=== PATIENT | female | born 1945 | race Caucasian/White ===

== ENCOUNTER → 2016-10-30 | Outpatient (CLI) | payer OTHER | LOC: MMPC 10:00 | PROVIDERS: ATTEND Orthopaedic Surgery | DX: G56.01 Carpal tunnel syndrome, right upper limb (principal) | CPT/HCPCS: 99214; G0463 ==

== ENCOUNTER → 2016-11-13 | Outpatient (CLI) | payer OTHER | LOC: MMPC 10:00 | PROVIDERS: ATTEND Orthopaedic Surgery | DX: G56.01 Carpal tunnel syndrome, right upper limb (principal) | CPT/HCPCS: 99213; G0463 ==

== ENCOUNTER → 2016-11-29 | Outpatient (CLI) | payer OTHER ==
--- NOTE | 2016-11-29 15:06 | DI ---
XR HIP COMPLETE MIN 2VW U/L,11/29/2016 9:47 AM: Clinical History: Soft tissue mass of the left hip Previous Exam: None at this facility. Findings: 3 views of the left hip are obtained, and demonstrate anatomic alignment without fractures. Joint spa carlitos are preserved. Degenerative changes of lumbar spine are seen. There are multiple surgical clips s een within the deep pelvis. Impression: Degenerative changes of lumbar spine otherwise unremarkable.
== END ==
LOC: LAB 09:43
PROVIDERS: ATTEND Obstetrics & Gynecology Gynecology
DX: R22.42 Localized swelling, mass and lump, left lower limb (principal)
CPT/HCPCS: 73502

== ENCOUNTER 2016-12-19 11:54 | Day surgery (SDC) | payer OTHER ==
[~2016-12-19 11:54] MED LIST: LIDOCAINE W/ SODIUM BICARB 0.5 ML SYR ONE; Lactated Ringers 1,000 ML PRIMARY IV ONE; ceFAZolin Inj 2gm (Premix) 50 ML IV ONE
[2016-12-19] MEDS ORDERED: fentaNYL Inj 100 MCG/2 ML VIAL ONE (13:47)
[2016-12-19] MEDS ORDERED: LIDOCAINE 2%/ EPI 1:200,000 - 20 ML VIAL ONE (13:47)
[2016-12-19] MEDS ORDERED: MIDAZOLAM 5 MG/1 ML ONE (13:47)
[2016-12-19] MEDS ORDERED: MEPIVACAINE HCL/PF 20 MG/1 ML IV ONE (13:47)
[2016-12-19 14:56] VITALS: RESP 12
[2016-12-19] MEDS ORDERED: MORPHINE SULFATE 2 MG/1 ML IVP PRN (15:02)
[2016-12-19] MEDS ORDERED: BISACODYL 5 MG TABLET PO PRN (15:02)
[2016-12-19] MEDS ORDERED: ONDANSETRON 4 MG/2 ML VIAL IVP PRN (15:02)
[2016-12-19] MEDS ORDERED: BISACODYL 10 MG SUPPOSITORY RECTAL PRN (15:02)
[2016-12-19] MEDS ORDERED: MAG HYDROX/AL HYDROX/SIMETH 30 ML SUSP PO PRN (15:02)
[2016-12-19] MEDS ORDERED: CALCIUM CARBONATE 500 MG (TUMS) CHEWABLE TABLET PO PRN (15:02)
[2016-12-19] MEDS ORDERED: IBUPROFEN 400 MG TABLET PO PRN (15:02)
[2016-12-19] MEDS ORDERED: HYDROcodone-APAP 5 MG -325 MG TABLET PO PRN (15:02)
[2016-12-19] MEDS ORDERED: diphenhydrAMINE 25 MG CAPSULE PO PRN (15:02)
[2016-12-19] MEDS ORDERED: Prochlorperazine Tab 10 MG TAB PO PRN (15:02)
[2016-12-19] MEDS ORDERED: NORMAL SALINE 10 ML SYRINGE FLUSH IVP PRN (15:02)
[2016-12-19] MEDS ORDERED: Ondansetron ODT Tab 8 MG TAB PO PRN (15:02)
[2016-12-19] MEDS ORDERED: ACETAMINOPHEN 325 MG TABLET PO PRN (15:02)
[2016-12-19] MEDS ORDERED: Lactated Ringers 1,000 ML PRIMARY IV SCH (15:15)
[2016-12-19 15:51] VITALS: TEMP 98.3
== END 2016-12-19 15:45 | disposition home or self-care (01) ==
LOC: SDSC 11:54
PROVIDERS: ATTEND Orthopaedic Surgery
DX: G56.01 Carpal tunnel syndrome, right upper limb (principal)
CPT/HCPCS: 64721; J0690; J3010; J0670; J2250; J7120

== ENCOUNTER → 2016-12-27 | Outpatient (CLI) | payer OTHER ==
--- NOTE | 2016-12-27 20:48 | DI ---
US ABDOMEN LIMITED,12/27/2016 10:11 AM: Clinical History: Abdominal pain Previous Exam: None at this facility. Findings: Multiple grayscale and color Doppler sonographic images are obtained through the abdomen. The pancreas is grossly normal throughout its visualized portions. The liver is normal. The gallbladd er wall is thickened measuring 8 mm. There is shadowing in the region of the gallbladder is well. The gallbladder is not seen due to the posterior shadowing. The right kidney measures 8.7 cm in length without hydronephrosis nor nephrolithiasis. The aorta is unremarkable. The common bile duct measures 7 mm. Impression: Thickened gallbladder wall with a wall echo shadow sign consistent with multiple stones within the ga llbladder.
== END ==
LOC: US 10:02
PROVIDERS: ATTEND Obstetrics & Gynecology Gynecology
DX: R10.11 Right upper quadrant pain (principal); K80.80 Other cholelithiasis without obstruction
CPT/HCPCS: 76705

== ENCOUNTER → 2017-01-10 | Outpatient (CLI) | payer OTHER | LOC: MMPC 11:11 | PROVIDERS: ATTEND Surgery | DX: K80.10 Calculus of gallbladder with chronic cholecystitis without obstruction (principal) | CPT/HCPCS: 99203; G0463 ==

== ENCOUNTER 2017-01-29 06:50 | Day surgery (SDC) | payer OTHER ==
[2017-01-29] MEDS ORDERED: BUPIVACAINE 0.25% W/ EPI - 10 ML VIAL ONE (06:53)
[2017-01-29] MEDS ORDERED: Sodium Chloride 0.9% vial 10 ML ONE ×2 (06:53→06:56)
[2017-01-29] MEDS ORDERED: Iothalamate Meglumine 30 ML VIAL IV ONE (06:53)
[2017-01-29] MEDS ORDERED: fentaNYL Inj 250 MCG/5 ML VIAL ONE (06:54)
[2017-01-29] MEDS ORDERED: MIDAZOLAM 5 MG/1 ML ONE (06:54)
[2017-01-29] MEDS ORDERED: Lactated Ringers 1,000 ML PRIMARY IV ONE ×2 (06:54→09:16)
[2017-01-29] MEDS ORDERED: LIDOCAINE W/ SODIUM BICARB 0.5 ML SYR ONE (06:54)
[2017-01-29] MEDS ORDERED: ceFAZolin Inj 2gm (Premix) 50 ML IV ONE (06:54)
[2017-01-29] MEDS ORDERED: Bacteriostatic NaCl Inj 30ml Vial ONE (06:54)
[2017-01-29] MEDS ORDERED: ROCURONIUM 10 MG/1 ML - 5 ML VIAL IVP ONE (06:56)
[2017-01-29] MEDS ORDERED: LIDOCAINE MPF 2% - 5 ML (20 MG/1 ML) ONE (06:56)
[2017-01-29] MEDS ORDERED: ePHEDrine Inj 50 MG/ML AMP ONE (08:27)
[2017-01-29] MEDS ORDERED: HYDROmorphone 2 MG/1 ML IVP PRN (08:40)
[2017-01-29] MEDS ORDERED: Ondansetron ODT Tab 8 MG TAB PO PRN (08:40)
[2017-01-29] MEDS ORDERED: fentaNYL Inj 100 MCG/2 ML VIAL IVP PRN (08:40)
[2017-01-29] MEDS ORDERED: NORMAL SALINE 10 ML SYRINGE FLUSH IVP PRN ×2 (08:40→09:25)
[2017-01-29] MEDS ORDERED: ATROPINE SULFATE 0.4 MG/1 ML VIAL IVP PRN (08:40)
[2017-01-29] MEDS ORDERED: Lactated Ringers 1,000 ML PRIMARY IV SCH ×2 (08:45→09:30)
[2017-01-29] MEDS ORDERED: SUGAMMADEX SODIUM 200 MG/2 ML VIAL IV ONE (08:47)
[2017-01-29] MEDS ORDERED: DEXAMETHASONE PF 10 MG/1 ML VIAL ONE (08:48)
[2017-01-29 09:25] VITALS: RESP 14
[2017-01-29] MEDS ORDERED: ONDANSETRON 4 MG/2 ML VIAL IVP PRN (09:25)
[2017-01-29] MEDS ORDERED: oxyCODONE-ACETAMINOPHEN 5-325 TAB PO PRN (09:25)
[2017-01-29] MEDS ORDERED: MORPHINE SULFATE 2 MG/1 ML IVP PRN (09:25)
--- NOTE | 2017-01-29 09:25 | GEN.OPNOTE ---
Operative Note Surgery Date: 01/29/17 Preoperative Diagnosis: Chronic cholecystitis and cholelithiasis. Postoperative Diagnosis: Chronic cholecystitis and cholelithiasis. Procedure: Laparoscopic cholecystectomy with intraoperative cholangiogram. Surgeon: Nathan Ann MD Laborer Syrup Machine: Ascencion Gallardo MD Anesthesia Provider: Evelia العراقي CRNA Anesthesia Type: General Estimated Blood Loss (mL): 5 Fluids: 1800 mL of crystalloid. 2 g of IV Ancef at the start of the procedure. Pathology: Specimen to pathology. Indications: Patient with multiple gallstones and postprandial abdominal distress. Findings: Multiple large stones within the gallbladder. Intraoperative cholangiogram showed a normal sized duct with free flow into the duodenum. There were no filling defects. There is a normal distal taper. There was a normal branching. The distal pancreatic duct that was seen was normal. No other abdominal pathology identified. There were some lower midline and adhesions from a prior hysterectomy. Complications: None. Operative Summary: The patient was taken to the operating room and placed on the operating table in the supine position. Following induction of general anesthetic the abdomen was prepped and draped in a sterile fashion. A surgical timeout was done. The infraumbilical region was infiltrated with 1/4% Marcaine with epinephrine. An incision was made. The abdominal wall was elevated. A Veres needle was placed without apparent injury and a pneumoperitoneum was induced. The veres needle was withdrawn. A 10 mm trocar was placed without apparent injury and a laparoscope was inserted. Under direct visualization and following Marcaine injection a 10 mm trocar was placed in the epigastrium and 2x5 mm trochars were placed along the costal margin. The gallbladder was grasped and elevated. Blunt dissection was used to free the cystic duct. A clip was placed along the neck of the gallbladder. A hole was made in the side wall of the cystic duct. A [place] cholangiocatheter was inserted. Intraoperative cholangiogram was taken and was normal as previously dictated. The [place] catheter was withdrawn. 2 clips were placed on the distal cystic duct and the duct was divided. The cystic artery was isolated. 2 clips were placed proximally and one distally and the artery was divided. The gallbladder was taken from the hepatic bed using electrocautery. The gallbladder was placed in an Endopouch. Hemostasis was assured. Appropriate irrigation and suctioning were performed. Final check for hemostasis was made. 5 mL of Marcaine was placed in the gallbladder fossa and 5 over the dome of the liver. The laparoscope was moved to the epigastric port. The gallbladder was grasped with a large grasper and brought up to the umbilical trocar site. The fascial defect at the umbilicus was slightly increased in size. The gallbladder was brought out through the trocar site without difficulty. The fascial defect at the umbilicus was closed with a running 0 Vicryl. A final check for hemostasis was made. The CO2 was burped from the abdominal cavity. The trochars were removed under direct visualization. No other trocar sites required fascial closure. The skin wounds were closed with inverted interrupted or running subcuticular 4-0 Monocryl followed by Mastisol Steri- Strips and an appropriate dressing. Patient tolerated the procedure well without complication. Patient was taken to the recovery room in stable condition. All counts were correct.
--- NOTE | 2017-01-29 10:04 | DI ---
OPERATIVE CHOLANGIOGRAM, 01/29/2017 8:00 AM : Clinical History: Biliary dyskinesia. Abdominal pain. 4 films are submitted. Contrast is present on all films with reflux into the duodenum as well as into the main pancreatic duct. There is no retained stone in the common hepatic or common bile ducts. The visualized portions of the intrahepatic biliary tree are normal. The last film is a postdrainage jensen m that shows almost complete emptying of the intrahepatic and common bile ducts. Reading: Normal operative cholangiogram.
[2017-01-29] MEDS ORDERED: oxyCODONE-ACETAMINOPHEN 5-325 TAB PO ONE (10:21)
[2017-01-29] MEDS ORDERED: ONDANSETRON 4 MG/2 ML VIAL ONE (10:43)
[2017-01-29 12:08] VITALS: TEMP 96.8
== END 2017-01-29 11:55 | disposition home or self-care (01) ==
LOC: SDSC 06:50
PROVIDERS: ATTEND Surgery
DX: K80.10 Calculus of gallbladder with chronic cholecystitis without obstruction (principal)
CPT/HCPCS: 47563; 74300; A4216; J0690; J2704; J3010; Q9961; J1100; J2001; J2250; J2405; J7120

== ENCOUNTER → 2017-02-12 | Outpatient (CLI) | payer OTHER | LOC: MMPC 11:11 | PROVIDERS: ATTEND Surgery | DX: Z90.49 Acquired absence of other specified parts of digestive tract (principal) ==

== ENCOUNTER → 2017-05-23 | Outpatient (CLI) | payer OTHER ==
--- NOTE | 2017-05-23 10:51 | DI ---
History: Postmenopausal bone density evaluation Comparison: None Findings: Low dose CT images of the lumbar spine were performed. Density evaluation was performed at the levels of L1 and L2 Low density CT images of the hips were performed. Density evaluation was performed in the left femora l neck and trochanteric region. Images at the level of L1 yield a bone density value of 132.6 mg per cubic centimeter Images taken at the level of L2 yield a value of 152.9 mg per cubic centimeter. The average lumbar score is 142.7 mg per cubic centimeter. these values yield a Z score of 2.28, T score of -0.99, indicating normal bone density Images at the level of the femoral neck yields a T score of -1.66 Images taken at the trochanteric region yielded T score of -0.98. T score value for the total hip is -1.18, indicating osteopenia. Impression The lumbar spine indicate normal bone density, however values to right from the left hip indicate ost eopenia.
== END ==
LOC: CT 09:32
PROVIDERS: ATTEND Obstetrics & Gynecology Gynecology
DX: Z13.820 Encounter for screening for osteoporosis (principal)
CPT/HCPCS: 77078